=== PATIENT | male | born 1990 | race Caucasian/White ===

== ENCOUNTER 2019-11-25 00:02 | Emergency (ER) | payer BC ==
[2019-11-25] MEDS ORDERED: Tetracaine HCl/PF 0.5% 4 ML Bottle EYEBOTH ONE (00:21)
[2019-11-25] MEDS ORDERED: Fluorescein 1 MG Ophth Strip EYEBOTH ONE (00:23)
--- NOTE | 2019-11-25 01:29 | EDM.PDOC ---
ED HPI GENERAL MEDICAL PROBLEM - General Chief Complaint: ENT Problem Stated Complaint: STUFF IN EYES Time Seen by Provider: 11/25/19 00:30 Source of Information: Reports: Patient History Limitations: Reports: No Limitations - History of Present Illness INITIAL COMMENTS - FREE TEXT/NARRATIVE: This is a 29-year-old male who presents with eye pain. 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 Around 530 pm he was in the car driving home when he began to feel some discomfort in his right eye. He describes a foreign body sensation in the upper right eye. The pain is worse with any movement of the eye. He also feels that he has some pain on the left. There is associated photophobia. The pain is been progressive since he arrived home this evening. He does not know of any chemical irritants that he may have had contact with. He does report he was using some oil while drilling/cutting metal, perhaps could have rubbed this in the eye with a glove. right eye Pain Score (Numeric/FACES): 4 - Related Data Allergies Allergy/AdvReac Type Severity Reaction Status Date / Time No Known Allergies Allergy Verified 11/25/19 00:05 Home Meds: Home Meds NK [No Known Home Meds] 11/25/19 [History] Past Medical History Musculoskeletal History: Reports: Fracture - Infectious Disease History Infectious Disease History: Reports: Chicken Pox - Past Surgical History HEENT Surgical History: Reports: Naso-Sinus Surgery Musculoskeletal Surgical History: Reports: Other (See Below) Other Musculoskeletal Surgeries/Procedures:: left 1st finger repair, 1st joint removed due to accident Social & Family History - Tobacco Use Smoking Status *Q: Never Smoker - Caffeine Use Caffeine Use: Reports: Coffee - Recreational Drug Use Recreational Drug Use: No ED ROS ENT - Review of Systems Review Of Systems: See Below Constitutional: Reports: No Symptoms HEENT: Reports: Other (eye pain) Respiratory: Reports: No Symptoms Cardiovascular: Reports: No Symptoms Endocrine: Reports: No Symptoms GI/Abdominal: Reports: No Symptoms : Reports: No Symptoms Musculoskeletal: Reports: No Symptoms Skin: Reports: No Symptoms Neurological: Reports: No Symptoms Psychiatric: Reports: No Symptoms Hematologic/Lymphatic: Reports: No Symptoms Immunologic: Reports: No Symptoms ED EXAM, ENT - Physical Exam Exam: See Below Exam Limited By: No Limitations General Appearance: Alert, Moderate Distress Eye Exam: Bilateral Eye: Other (Lids of both eyes everted and extensively examined, no foreign body appreciated. Fluorescein examination with use of a slit lamp reveals no abnormality.) Mouth/Throat: Normal Inspection Head: Atraumatic, Normocephalic Neck: Normal Inspection Respiratory/Chest: No Respiratory Distress Cardiovascular: Regular Rate, Rhythm GI/Abdominal: No Distention Back: Normal Inspection Extremities: Normal Inspection Neurological: Alert, Oriented Psychiatric: Normal Affect, Normal Mood Skin: Warm, Dry Course - Vital Signs Last Recorded V/S: Last Vital Signs Temp 36.5 C 11/25/19 00:13 Pulse 95 11/25/19 00:13 Resp 16 11/25/19 00:13 BP 140/97 H 11/25/19 00:13 Pulse Ox 97 11/25/19 00:13 - Orders/Labs/Meds Meds: Medications Discontinued Medications Generic Name Dose Route Start Last Admin Trade Name Freq PRN Reason Stop Dose Admin Erythromycin 1 gm 11/25/19 01:59 Erythromycin 0.5% Ophth Oint EYEBOTH 11/25/19 02:00 ONETIME ONE Fluorescein Sodium 1 mg 11/25/19 00:23 11/25/19 01:12 Ful-Janell EYEBOTH 11/25/19 00:24 1 mg ONETIME ONE Administration Tetracaine HCl 1 ml 11/25/19 00:21 11/25/19 01:12 Tetracaine 0.5% Steri-Unit Leeanne EYEBOTH 11/25/19 00:22 1 ml ASDIRECTED ONE Administration - Re-Assessments/Exams Free Text/Narrative Re-Assessment/Exam: This is a 29-year-old male who presents with concerns of right eye pain along with some involvement of the left eye. He is describing a foreign body sensation, seems like he should have a metallic foreign body and corneal abrasion. However, I cannot appreciate any foreign body on exam nor evidence of corneal injury using fluorescein and slit lamp examination. I cannot get our Ramez-Pen working to measure a IOP. Visual acuity is modestly diminished in the right. Interestingly his symptoms do improve with administration of tetracaine drops. His history seems most consistent with some form of chemical irritant or photokeratitis. We attempted to irrigate his eye with saline, he did not tolerate this, and he reports very much that he feels like there is a foreign body in his right upper eyelid. We are going to obtain a CT of the orbits to examine for possible intraocular foreign body or a missed periorbital foreign body. 11/25/19 01:32 Free Text/Narrative Re-Assessment/Exam: CT without foreign body. 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 Will presumptively treat him for this - erythromycin ointment prescribed. He will follow up with optho in AM. 11/25/19 02:22 Departure - Departure Time of Disposition: 02:14 Disposition: Home, Self-Care 01 Clinical Impression: Photokeratitis of both eyes - Discharge Information Instructions: Ultraviolet Keratitis Referrals: Topher Rahman MD [Primary Care Provider] - Forms: ED Department Discharge Additional Instructions: Please apply the eye antibiotics and make a follow up appointment in the morning with an eye doctor. Sepsis Event Note (ED) - Evaluation Sepsis Screening Result: No Definite Risk - Focused Exam Vital Signs: Vital Signs Temp Pulse Resp BP Pulse Ox 11/25/19 00:13 36.5 C 95 16 140/97 H 97 11/25/19 00:12 36.5 C 95 16 140/97 H 97
[2019-11-25] MEDS ORDERED: Erythromycin Base 0.5% Ophth Oint 3.5 GM Tube EYEBOTH ONE (01:59)
--- NOTE | 2019-11-25 02:13 | CRLCT ---
INDICATION: Possible intra-ocular metallic foreign body on the right. COMPARISON: None available TECHNIQUE: CT examination of the facial bones is performed without contrast enhancement using spiral technique. 1.5 thick axial, coronal and sagittal sections were obtained from the data. Please note that all CT scans at this facility use dose modulation, iterative reconstruction, and/or weight-based dosing when appropriate to reduce radiation dose to as low as reasonably achievable. FINDINGS: There is no sign of any radiopaque or radiolucent foreign body in the orbits bilaterally. Specifically, there is no sign of any right-sided foreign body. There is a small amount of gas seen under the lateral aspect of the right upper eyelid, probably from recent examination. The intraorbital soft tissue structures are normal in appearance bilaterally. There is no sign of facial fracture on today`s study. The orbits, zygomatic arches, nasal bones, maxillae, and mandible are normal in appearance. There is a mucous retention cyst in the inferior right maxillary sinus. There is a small mucous retention cyst in the inferior left sphenoid sinus. The rest of the paranasal sinuses are clear. The mastoids are clear. The airway structures are normal in appearance. IMPRESSION: No sign of any right orbital injury, specifically with no sign of any radiopaque or radiolucent foreign body. Otherwise normal CT of the facial bones with no sign of acute osseous or soft tissue injury. Please note that all CT scans at this facility use dose modulation, iterative reconstruction, and/or weight-based dosing when appropriate to reduce radiation dose to as low as reasonably achievable. Dictated by Obed Lim MD @ Nov 25 2019 2:08AM Signed by Dr. Obed Lim @ Nov 25 2019 2:11AM
== END 2019-11-25 02:27 | disposition home or self-care (01) ==
LOC: JP.ED 00:02
DX: H16.133 Photokeratitis, bilateral (principal)
CPT/HCPCS: 70480; 99283; A9270